=== PATIENT | female | born 1980 | race Caucasian/White ===

== ENCOUNTER 2019-04-12 01:43 | Emergency (ER) | payer SELFPAY ==
[2019-04-12 01:52] VITALS: BP 136/85
[2019-04-12] MEDS ORDERED: CEFTRIAXONE INJ 1000 MG VIAL IM ONE (04:13)
[2019-04-12] MEDS ORDERED: LIDOCAINE 1% INJ-PF (10 MG/ML) 30 ML SDV INJ ONE (04:13)
[2019-04-12] MEDS ORDERED: SULFAMETHOXAZOLE/TRIMETHOPRIM 800-160 MG TABLET PO ONE (04:14)
--- NOTE | 2019-04-12 04:18 | ER Document Report ---
ED Skin Rash/Insect Bite/Abscs - General Chief Complaint: Skin Problem Stated Complaint: SKIN ISSUE Time Seen by Provider: 04/12/19 04:03 Notes: Patient is a 38 year old female that comes to the emergency department for chief complaint of painful redness developing on her arms, mainly on the right forearm. She admits that she injects methamphetamine, she started noticing the redness earlier today, she denies any other locations of pain or rash. She denies fever, nausea or vomiting, chest pain, shortness of breath, headache. She denies . She denies any diagnosed medical problems. Patient states she has chosen to quit in the past and done this successfully but this is a relapse. TRAVEL OUTSIDE OF THE [place] IN LAST 30 DAYS: No Past Medical History - General Information source: Patient - Social History Smoking Status: Never Smoker Drug Abuse: Methamphetamine Lives with: Family Family History: Reviewed & Not Pertinent - Immunizations Immunizations up to date: Yes Hx Diphtheria, Pertussis, Tetanus Vaccination: Yes Review of Systems - Review of Systems Constitutional: No symptoms reported EENT: No symptoms reported Cardiovascular: No symptoms reported Respiratory: No symptoms reported Gastrointestinal: No symptoms reported Genitourinary: No symptoms reported Female Genitourinary: No symptoms reported Musculoskeletal: No symptoms reported Skin: See HPI Hematologic/Lymphatic: No symptoms reported Neurological/Psychological: No symptoms reported Physical Exam - Vital signs Vitals: Temp Pulse Resp BP Pulse Ox 98.2 F 103 H 16 136/85 H 96 04/12/19 01:48 04/12/19 01:48 04/12/19 01:48 04/12/19 01:48 04/12/19 01:48 - Notes Notes: GENERAL: Alert, interacts well. No acute distress. HEAD: Normocephalic, atraumatic. EYES: Pupils equal, round, and reactive to light. Extraocular movements intact. ENT: Oral mucosa moist, tongue midline. Oropharynx unremarkable. Airway patent. NECK: Full range of motion. Supple. Trachea midline. LUNGS: Clear to auscultation bilaterally, no wheezes, rales, or rhonchi. No respiratory distress. HEART: Regular rate and rhythm. No murmur ABDOMEN: Soft, non-tender. Non-distended. Bowel sounds present in all 4 quadrants. GENITOURINARY: Deferred EXTREMITIES: Right distal forearm with what appears to be an injection luma, passed this spreading approximately there is erythema and warmth although there is no swelling, induration, or fluctuance noted. There is a separate patch of erythema over the flexor surface of the forearm as well. Normal range of motion of the wrist, elbow. Normal capillary refill and sensation. There is some bruising noted around the antecubital space but no abnormal erythema or swelling in these locations. Separately on the left arm there are 2 small sites of injection that have some mild surrounding erythema as well. No induration or fluctuance here either. Normal extremity exams otherwise. BACK: no cervical, thoracic, lumbar midline tenderness. No saddle anesthesia, normal distal neurovascular exam. Moves all extremities in full range of motion. NEUROLOGICAL: Alert and oriented x3. Normal speech. Cranial nerves II through XII grossly intact. PSYCH: Normal affect, normal mood. SKIN: Warm, dry, normal turgor. Course - Re-evaluation Re-evalutation: 04/12/19 04:17 Patient has evidence of cellulitis developing mainly over the right forearm, questionably and minimally over the left forearm. There is no evidence of septic joint, joints have full range of motion without pain, there is no evidence of induration or fluctuance suggesting abscess. Patient is afebrile and actually quite well-appearing. Symptoms started earlier today. I did recommend laboratory work-up, IV, IV antibiotics but patient declined. I explained the importance of getting ahead of this and the complications that this could cause, patient still refused. Patient agrees to having the areas traced around the borders, starting antibiotics, and return if she worsens. She states that she has stopped methamphetamine in the past without difficulty, she states that she plans on not using this anymore because she understands that this will be lethal if she continues to use it, she denies using any other types of recreational drugs. She does have family with her supporting her. Discharged with strict return precautions. - Vital Signs Vital signs: Temp Pulse Resp BP Pulse Ox 98.2 F 103 H 16 136/85 H 96 04/12/19 01:48 04/12/19 01:48 04/12/19 01:48 04/12/19 01:48 04/12/19 01:48 Discharge - Discharge Clinical Impression: Methamphetamine abuse Cellulitis Qualifiers: Site of cellulitis: extremity Site of cellulitis of extremity: upper extremity Laterality: unspecified laterality Qualified Code(s): L03.119 - Cellulitis of unspecified part of limb Condition: Stable Disposition: HOME, SELF-CARE Additional Instructions: Your evaluation is consistent with developing cellulitis at the sites of injection. You have been started on antibiotics, take these as prescribed, return if you develop spreading redness, increased swelling, increased pain, fever/chills, or any other concerning or worsening symptoms. Prescriptions: Cephalexin Monohydrate [Keflex 500 mg Capsule] 500 mg PO QID #28 capsule Sulfamethoxazole/Trimethoprim [Bactrim Ds Tablet] 1 each PO BID #14 tablet
== END 2019-04-12 06:01 | disposition home or self-care (01) ==
LOC: ER 01:43
DX: F15.10 Other stimulant abuse, uncomplicated (principal); L03.114 Cellulitis of left upper limb; L03.113 Cellulitis of right upper limb
CPT/HCPCS: 99282; 96372; J3490; J0696